=== PATIENT | male | born 1980 | race Two or more races ===

== ENCOUNTER 2020-06-17 15:49 | Inpatient (IN) | payer OTHER ==
[~2020-06-17] VITALS: Ht 160 cm; Wt 81.8 kg
--- NOTE | 2020-06-17 19:30 | NUR ---
Received report from mikki Cage RN. Patient is a direct admit from [facility], not on unit at this time. Per mikki RN, patient to arrive between 21:00-22:00 by [facility]. Awaiting patient at this time.
--- NOTE | 2020-06-17 22:45 | NUR ---
Direct Admit from [facility] ADRIENNE RIVERA admitted to tele/MS after SBAR received from mikki RODRIGUEZ. Patient oriented to MADELINE IBARRA RN primary RN, unit, room, bed, and unit policies regarding patient care and visiting hours. Patient weighed by bedscale and encouraged to call if they need something. All questions and concerns addressed, patient verbalized understanding. Bed in lowest locked position, side rails up x2, call light within reach, guards at bedside. Will contact primary doctor Frank for orders. Addendum: 06/18/20 at 0321 by MADLEINE IBARRA RN RN ADDITION: Will round every hour and PRN and continue to monitor. Addendum: 06/18/20 at 0327 by MADELINE IBARRA RN RN ADDITION: Spoke with charge nurse Stephanie RODRIGUEZ regarding patient's COVID 19 results. Charge nurse reports she spoke with [employer] Tracy and patient is OK to admit to regular Med-Surg/Telemetry floor at this time as patient's last COVID 19 test came back with a negative result. Will send COVID 19 swab per hospital admission protocol and continue to monitor patient.
[2020-06-17 23:00] VITALS: BP 133/91
--- NOTE | 2020-06-17 23:05 | NUR ---
Called to lab requesting COVID 19 test, waiting for it to be sent to unit at this time. Will continue care.
[2020-06-17 23:25] VITALS: BP 133/91
--- NOTE | 2020-06-17 23:45 | NUR ---
Return call from Dr. Marie at this time. All orders read back and verified, will implement as ordered and continue to monitor patient.
--- NOTE | 2020-06-18 01:30 | NUR ---
IV insertion IV access obtained, via clean sterile technique by inserting 22 gauge catheter to patient's right forearm after two attempts by Ade RODRIGUEZ. IV secured properly. No trauma to site. Patient tolerated well.
--- NOTE | 2020-06-18 01:30 | NUR ---
MRSA and COVID 19 nasal swabs obtained and walked to lab. Patient tolerated well. Will continue care.
[2020-06-18] MEDS ORDERED: ATOR20TA PO (01:33)
[2020-06-18] MEDS ORDERED: LEVO125T66 PO (01:33)
[2020-06-18 05:00] VITALS: BP 115/81
--- NOTE | 2020-06-18 07:20 | NUR ---
Closing Note Patient lying in bed, eyes closed, respirations even and unlabored, appears asleep. Pt. awakens to name and touch. Bed in lowest locked position, side rails up x2, call light within reach, guards at bedside. No s/s of distress. Care endorsed to dayshift RN.
--- NOTE | 2020-06-18 07:50 | NUR ---
PATIENT ROUNDS PATIENT AWAKE ALERT AND ORIENTED, SITTING IN BED, NO DISTRESS NOTED. BED IN LOWEST POSITION, SIDE RIALS UP X2, CALL LIGHT WITHIN REACH. WILL CONTINUE TO MONITOR. PATIENT ENCOURAGED TO CALL IF THEY NEED ANYTHING.
[2020-06-18 09:17] VITALS: BP 113/70
[2020-06-18] MEDS: cefTRIAXone 1GM/50ML D5W 50 ML IV SCH (09:39)
[2020-06-18] MEDS: CHOLECALCIFEROL (VITD3) 1,000UNIT=25mCg TAB PO SCH (09:39)
[2020-06-18] MEDS: AZITHROMYCIN 250 MG TAB PO SCH (09:39)
[2020-06-18] MEDS: ZINC SULFATE 220mg CAP or TAB PO SCH (09:40)
[2020-06-18] MEDS: ASCORBIC ACID 500 MG TAB PO SCH ×2 (09:40→21:44)
[2020-06-18] MEDS: ENOXAPARIN SOD 40 MG/0.4 ML SYRINGE SC SCH (09:40)
[2020-06-18] MEDS ORDERED: methylPREDNISolone SOD SUCC 125 MG/2 ML VL IV SCH (10:00)
--- NOTE | 2020-06-18 10:30 | NUR ---
PATIENT AMBULATING IN HALLWAY, NO DISTRESS NOTED. PATIENT TOLERATING WELL. GUARDS AT PATIENTS SIDE.
[2020-06-18 11:08] LABS: Hematocrit 52.3 % (41.0-53.0); Hemoglobin 16.8 g/dL (13.5-17.5); Mean Corpuscular Hemoglobin 27.1 pg (28.0-32.0); Mean Corpuscular Hgb Conc. 32.2 g/dL (32.0-36.0); Mean Corpuscular Volume 84.1 fL (80.0-100.0); Red Blood Cells 6.22 10^6/uL (4.5-5.90); Red Cell Distribution Width 14.4 % (11.8-14.3)
[2020-06-18 11:10] LABS: Platelet Count (auto) 828 10^3/uL (140-450)
[2020-06-18 11:11] LABS: Band Neutrophils % (manual) 0; Basophils % (manual) 0 (0.0-2.0); Blast Cells 0; Eosinophils % (manual) 0 (0-7); Promyelocytes % 0; Reactive Lymphocytes 0
[2020-06-18 11:15] LABS: Albumin 2.8 g/dL (3.4-5.0); Calcium 8.6 mg/dL (8.5-10.1); Potassium 3.8 mmol/L (3.5-5.1)
[2020-06-18 11:19] LABS: BUN/Creatinine Ratio 21.8; Bilirubin, Total 0.6 mg/dL (0.2-1.0); Total Protein 7.2 g/dL (6.4-8.2)
[2020-06-18] MEDS: methylPREDNISolone SOD SUCC 125 MG/2 ML VL IV SCH ×2 (11:26→21:44)
--- NOTE | 2020-06-18 12:01 | NUR ---
LAB/COVID MICRO CALLED WITH POSITIVE COVID TEST RESULT AND CRITICAL PLATELET 828. LABORER [employer] MADE AWARE, DR MORRIS CALLED AND MESSAGE LEFT FOR MD, WAITING FOR CALL BACK. PLAN TO TRANSFER PATIENT TO [facility] ROOM 233 WITH MICHAEL ODEN. GUARDS AT BEDSIDE AWARE.
--- NOTE | 2020-06-18 12:20 | NUR ---
MD CALL BACK SPOKE WITH DR MORRIS, UPDATED HIM ON LAB AND COVID RESULTS. PER MD, TRANSFER PATIENT TO COVID UNIT. NO OTHER ORDERS AT THIS TIME.
[2020-06-18 13:00] VITALS: BP 135/63
--- NOTE | 2020-06-18 13:04 | NUR ---
REPORT GIVEN TO MICHAEL ODEN.
--- NOTE | 2020-06-18 13:42 | NUR ---
Received patient from room 287B via wheelchair. Patient accompanied by 2 guards. Patient oriented to room, call light placed bedside, 2x side rails up, and bed in locked and lowest position. Patient VS: 142/88, 105, 92%, 18, 98.2. No complaints of pain or discomfort at this time.
--- NOTE | 2020-06-18 13:50 | NUR ---
PATIENT TRANSFERRED TO ROOM 233, GUARDS AND BELONGINGS WITH PATIENT.
[2020-06-18 13:55] LABS: Lymphocytes % (manual) 5 (10.0-50.0); Monocytes % (manual) 4 (0-12)
[2020-06-18 13:56] LABS: Metamyelocytes % 1; Myelocytes % 1
[2020-06-18 16:50] VITALS: BP 129/83
[2020-06-18 22:00] VITALS: BP 121/70
[2020-06-19 05:00] VITALS: BP 124/90
--- NOTE | 2020-06-19 08:00 | NUR ---
ASSESSMENT NOTE PT IS ALERT ORIENTED X4, RESTING IN BED COMFORTABLY, NO DISTRESS NOTED AT LOW WINN POSITION, PAIN 0/10, HAND METAL CUFF NOTED AT LEFT HAND, ABLE TO VERBALIS HIS DEMANDS, DENIES SHORTNESS OF BREATH OR BODY ACHES, CALL LIGHT WITHIN REACH, GUARDS AT BED SIDE AT ALL TIMES
--- NOTE | 2020-06-19 09:30 | NUR ---
DR SOLORZANO IS HERE FOLLOWING UP ON PT
[2020-06-19] MEDS: methylPREDNISolone SOD SUCC 125 MG/2 ML VL IV SCH ×2 (09:39→22:21)
[2020-06-19] MEDS: cefTRIAXone 1GM/50ML D5W 50 ML IV SCH (09:39)
[2020-06-19] MEDS: ZINC SULFATE 220mg CAP or TAB PO SCH (09:40)
[2020-06-19] MEDS: ASCORBIC ACID 500 MG TAB PO SCH ×2 (09:40→22:21)
[2020-06-19] MEDS: CHOLECALCIFEROL (VITD3) 1,000UNIT=25mCg TAB PO SCH (09:40)
[2020-06-19] MEDS: AZITHROMYCIN 250 MG TAB PO SCH (09:41)
[2020-06-19] MEDS: ENOXAPARIN SOD 40 MG/0.4 ML SYRINGE SC SCH (09:41)
[2020-06-19 12:53] VITALS: BP 128/87
[2020-06-19 16:31] VITALS: BP 137/80
--- NOTE | 2020-06-19 17:15 | NUR ---
DR LION AT BED SIDE FOLLOWING UP ON PT, SAID PT ON ROOM AIR AND HE IS CLEARED IN HIS STANDING POINT
--- NOTE | 2020-06-19 18:23 | NUR ---
PT IS EATING DINNER, NO DISTRESS NOTED, CONTINUE MONITORING
--- NOTE | 2020-06-19 20:00 | NUR ---
Opening Shift Note Assumed care of patient, awake and alert x4. Patient denies pain or shortness of breath at this time. No sign/symptoms of distress noted at this time. Instructed on plan of care and encouraged patient to call for assistance as needed, patient verbalized understanding. Bed is locked in lowest position, side rails x 2 are up, call light is within reach, and guard noted at the bedside.
[2020-06-19 22:28] VITALS: BP 138/81
[2020-06-20 05:16] VITALS: BP 121/82
--- NOTE | 2020-06-20 08:00 | NUR ---
Opening Shift Note Assumed care of patient, awake and alert x4. Guard bedside.Patient denies pain or shortness of breath at this time. No sign/symptoms of distress noted at this time. Instructed on plan of care and encouraged patient to call for assistance as needed, patient verbalized understanding. Bed is locked in lowest position, side rails x 2 are up, call light is within reach, and guard noted at the bedside.
[2020-06-20] MEDS: CHOLECALCIFEROL (VITD3) 1,000UNIT=25mCg TAB PO SCH (08:24)
[2020-06-20] MEDS: AZITHROMYCIN 250 MG TAB PO SCH (08:24)
[2020-06-20] MEDS: ZINC SULFATE 220mg CAP or TAB PO SCH (08:24)
[2020-06-20] MEDS: methylPREDNISolone SOD SUCC 125 MG/2 ML VL IV SCH ×2 (08:24→22:00)
[2020-06-20] MEDS: ENOXAPARIN SOD 40 MG/0.4 ML SYRINGE SC SCH (08:24)
[2020-06-20 09:00] VITALS: BP 135/91
[2020-06-20] MEDS: cefTRIAXone 1GM/50ML D5W 50 ML IV SCH (09:00)
[2020-06-20] MEDS: ASCORBIC ACID 500 MG TAB PO SCH ×2 (10:00→22:00)
[2020-06-20 12:37] VITALS: BP 134/96
[2020-06-20 17:00] VITALS: BP 143/97
[2020-06-20] MEDS ORDERED: PRED20TA2 PO (18:57)
[2020-06-20] MEDS ORDERED: AZIT250T9 PO (18:57)
--- NOTE | 2020-06-20 18:59 | NUR ---
ENDORSED CARE TO NIGHT RN.
--- NOTE | 2020-06-20 19:20 | NUR ---
Opening Shift Note RECEIVED REPORT FROM JEREMIAH RN AT 1920. Assumed care of patient, awake and alert. No S/S of distress/SOB or pain. Instructed on POC and to call for assist PRN, will continue to monitor for changes Q1hr and PRN. bed in low position and call light within reach. jarrett at bedside
--- NOTE | 2020-06-20 20:50 | NUR ---
Discharge discharge information given to patient. education packet provided to patient. educated patient on discharge packet and new prescribed medications. Patient verbalized understanding. copy of forms placed in chart. patient belongings with patient. iv discontinued catheter fully intact, patient tolerated well. [facility] is [facility] no telebox to be removed. Forms given to guard at bedside with patient knowledge. All questions and concerns answered patient verbalized understanding. Awaiting transportation.
--- NOTE | 2020-06-20 20:50 | NUR ---
Discharge discharge information given to patient. education packet provided to patient. educated patient on discharge packet and new prescribed medications. Patient verbalized understanding. copy of forms placed in chart. patient belongings with patient. iv discontinued catheter fully intact, patient tolerated well. patient is [facility] no telebox to be removed. Forms given to guard at bedside with patient knowledge. Patient instructed If your health condition does not continue to improve or worsens, contact your primary care provider/doctor, or go Immediately to the nearest emergency department for evaluation.All questions and concerns answered patient verbalized understanding. Awaiting transportation to [facility].
[2020-06-20 21:11] VITALS: BP 141/97
[2020-06-20 21:26] VITALS: BP 149/98
--- NOTE | 2020-06-20 22:11 | NUR ---
patient taken down with guards and evs. patient belongings with him. denies sob distress or pain Addendum: 06/20/20 at 2214 by ALINE GREEN RN RN patient discharged
== END 2020-06-20 22:10 | DRG 177 ==
LOC: EEVIPCON 22:57 → WEST WING 22:57 → EAST 06-18 13:46
PROVIDERS: ADMIT Internal Medicine; ATTEND Internal Medicine
DX: U07.1 COVID-19 (principal); J12.89 Other viral pneumonia; J96.00 Acute respiratory failure, unspecified whether with hypoxia or hypercapnia; J98.11 Atelectasis; E66.9 Obesity, unspecified; Z68.31 Body mass index [BMI] 31.0-31.9, adult; Z79.899 Other long term (current) drug therapy; Z82.49 Family history of ischemic heart disease and other diseases of the circulatory system
CPT/HCPCS: 36415; 71045; 71046; 80053; 82728; 85007; 85027; 87081; G0378; J0696